=== PATIENT | female | born 1955 | race African-American/Black ===

== ENCOUNTER 2020-08-19 23:49 | Emergency (ER) | payer OTHER, MEDICAID ==
[~2020-08-19 23:49] MED LIST: AMIODARONE 150 MG/3 ML VIAL ONE; EPINEPHrine SYRINGE 1 MG/10 ML SYRINGE ONE; SODIUM BICARB ADULT 8.4% 50 MEQ/50 ML DISP.SYRIN. ONE
--- NOTE | 2020-08-20 00:15 | PHYS DOC ---
General Adult EDM: Chief Complaint: CPR/FULL ARREST HPI: HPI: PATIENT WAS SEEN BY THIS PHYSICIAN IMMEDIATELY UPON ARRIVAL TO ROOM, NOT AT THE TIME STAMPED BY THE COMPUTER. Patient is a 65 year old female who was brought here by EMS in cardiac arrest. Per report, patient collapsed at [facility], unresponsive, no PULSE. EMS was called, found her to be in PEA, they proceeded to do CPR and resuscitated per ACLS protocol. Patient had an IO placed on the left leg, patient was intubated by EMS. Total resuscitation time by EMS was 19 minutes. Upon arrival to room, patient was in PEA. Emergency department team took over resuscitation and proceeded per ACLS protocol. Review of Systems: Review of Systems: Unable to obtain due to condition Heart Score: C/O Chest Pain: N/A Risk Factors: Risk Factors: DM, Current or recent (<one month) smoker, HTN, HLP, family history of CAD, obesity. Risk Scores: Score 0 - 3: 2.5% MACE over next 6 weeks - Discharge Home Score 4 - 6: 20.3% MACE over next 6 weeks - Admit for Clinical Observation Score 7 - 10: 72.7% MACE over next 6 weeks - Early Invasive Strategies Physical Exam: PE: Constitutional: Well developed, well nourished, unresponsive, CPR in progress HENT: Normocephalic, atraumatic, ET tube in place. Eyes: Bilateral equal pupil fixed and dilated. Neck: Trachea is midline, no crepitus Cardiovascular: No pulse, PEA pattern Lungs & Thorax: Bilateral breath sounds clear to auscultation with mechanical ventilation Abdomen: Abdomen distended Skin: Cold to touch no rash Back: No evidence of trauma Extremities: No evidence of trauma Neurologic: Comatose Psychologic: Comatose Current Patient Data: Labs: Laboratory Tests Test 08/20/20 00:02 Glucose (Fingerstick) 231 mg/dL (70-99) H EKG: EKG: [] Radiology/Procedures: Radiology/Procedures: [] Course & Med Decision Making: Course & Med Decision Making Pertinent Labs and Imaging studies reviewed. (See chart for details) Patient is a 65-year-old female who was found in cardiac arrest at the local [facility], patient was resuscitated by EMS, brought here emergently, was in PEA upon arrival here. Resuscitation did not revise patient. Patient was pronounced by this physician at 0:11 on 08/20/2020. Dragon Disclaimer: Dragjoi Disclaimer: This electronic medical record was generated, in whole or in part, using a voice recognition dictation system. Departure Departure Impression: Primary Impression: Cardiac arrest Disposition: 20 (AT 0.11 ON 08/20/20) Condition: Referrals: NO PCP (PCP) IFRAH HERNANDES DO Aug 20, 2020 00:15
== END 2020-08-20 05:16 ==
LOC: ER 23:49
DX: I46.9 Cardiac arrest, cause unspecified (principal)
CPT/HCPCS: 82962; 92950; J0171; J0282; J3490; 99285-25